=== PATIENT | male | born 1965 | race African-American/Black ===

== ENCOUNTER 2018-04-15 08:08 | Outpatient (CLI) ==
--- NOTE | 2018-04-15 09:31 | US ---
EXAM: Ultrasound abdomen limited. HISTORY: Abdominal pain and bloating. COMPARISON: CT 07/21/2014. TECHNIQUE: Abdominal, real time with image documentation: limited (eg, single organ, quadrant, foll ow-up) FINDINGS: The liver demonstrates increased parenchymal echogenicity with focal sparing near the gall bladder. There is no intrahepatic biliary dilatation. Portal venous flow is normal in direction. T he gallbladder is without shadowing stones, wall thickening or pericholecystic fluid. Common duct me asures approximately 0.5 cm. Visualized portions of the pancreas are unremarkable. IMPRESSION: Fatty infiltration of the liver.
== END 2018-04-15 08:09 ==
LOC: RAD 08:08
PROVIDERS: ATTEND Internal Medicine
DX: R10.9 Unspecified abdominal pain (principal); R14.0 Abdominal distension (gaseous)

== ENCOUNTER 2018-04-23 07:55 | Outpatient (CLI) ==
--- NOTE | 2018-04-23 12:14 | NM ---
Exam: Hepatobiliary scintigraphy with gallbladder ejection fraction Date of exam: 04/23/2018 Radiopharmaceutical: 5.1 mCi Tc-99m mebrofenin i.v. and 8 ounces of Boost HISTORY: Abdominal pain FINDINGS: Following intravenous administration of technetium-99m mebrofenin, sequential abdominal im ages were obtained. There is prompt and uniform accumulation of the radiotracer by the liver. There is normal filling of the intrahepatic ducts, common bile duct, and gallbladder. There is normal exc retion of radiotracer into the duodenum. In order to evaluate the contracted oral response of the gallbladder to a fat containing meal, the ashley mayberry was given 8 ounces of Boost to drink. Sequential imaging was continued after the start of the liquid meal. These images demonstrate good contraction of the gallbladder. The calculated gallbladd er ejection fraction is 22%. In normal subjects, the lower limit of normal gallbladder ejection fraction for Ensure is 33%. Impression: 1. Decreased contractile response of the gallbladder to a fat containing liquid meal although evalua tion is somewhat limited by utilization of Boost instead of Ensure for the fat containing liquid meal . 2. Normal biliary imaging study.
== END 2018-04-23 07:56 | disposition home or self-care (01) ==
LOC: RAD 07:55
PROVIDERS: ATTEND Internal Medicine
DX: R14.0 Abdominal distension (gaseous) (principal); K30 Functional dyspepsia

== ENCOUNTER 2019-02-23 06:55 | Outpatient (CLI) ==
--- NOTE | 2019-02-24 09:57 | ECHO2D ---
Date of Exam: 02/23/19 Ordering Physician: DR. ELLE GUERIN Room #: OP Reason for Echo: SOB, DM2, HYPERTENSION M-Mode Normal Adult Results LV Dimensions Normal Adult Results AoV Opening excursions >1.6 >1.6 LVEDD-base- 3.5-5.8 5.2 Ao root dimensions 2.0-3.7 3.6 LVESD-base- 3.1-4.6 L. Atrium dimensions 1.9-3.8 4.9 Post. Wall thickness 0.8-1.1 1.3 IV septum (thickness) 0.7-1.2 1.4 Post. Wall excursion 0.72-1.3 NORMAL Septal motion 0.8 Systolic motion R. Ventricular cavity 1.5-2.0 NORMAL LVEF 60% 50% Paradoxical septal wall motion NORMAL 2-D : 2-D M Mode Echocardiogram was performed using apical four chamber and left parasternal long and short axis views. Mitral, tricuspid and aortic valves appear to be normal. Contractility of the left ventricle seems to be normal, so is the cavity size. ENLARGED LEFT ATRIAL CAVITY SIZE. Aortic root appears to be normal. There is no pericardial effusion. There is no thrombus noted in the left ventricular or left aortic cavity. No mitral valve prolapse noted. M-MODE: MV: NORMAL AV: NORMAL TV: NORMAL PV: CHAMBER SIZE: ENLARGED LEFT ATRIAL CAVITY WALL MOTION: NORMAL PERICARDIUM: NORMAL INTERPRETATION: 1. LEFT VENTRICULAR HYPERTROPHY (MODERATE) WITH ENLARGED LEFT ATRIAL CAVITY 2. NORMAL LEFT VENTRICULAR CONTRACTILITY 3. NORMAL VALVES MTDD
== END 2019-02-23 06:56 | disposition home or self-care (01) ==
LOC: CAR 06:55
PROVIDERS: ATTEND Internal Medicine
DX: R06.02 Shortness of breath (principal)
CPT/HCPCS: 93005; 93010

== ENCOUNTER 2019-02-24 06:44 | Outpatient (CLI) ==
--- NOTE | 2019-02-24 09:53 | STRESSECHO ---
Date of Test:02/24/19 Ordering Physician: DR. ELLE GUERIN Occupation: TEACHER Reason for Exam: SOB, DM2, HTN Smoking History: NONE Height: 70" Weight: 280 LBS Current Medications: GLIMEPIRIDE, ATORVASTATIN, LEVOTHYROXINE, JANUVIA, METFORMIN, ALLOPURINOL, BYDUREON Resting EKG: SINUS RHYTHM/ NO ACUTE CHANGES Target Heart Rate: 140/165 S-T SEGMENT STAGE MPH/GRADE HEART RATE BPM BLOOD PRESSURE MMHG RHYTHM +/- ELEVATION DEPRESSION SYMPTOMS AT REST 83 BPM 128/72 MMHG SR X NONE 1 1.7/10% 125 BPM 142/72 MMHG SR X NONE 2 2.5/12% 136 BPM 158/70 MMHG SR X NONE 3 3.4/14% 4 4.2/16% 5 5.0/18% Immediately After 143 BPM SR X SHORT OF AIR Minutes Post Exercise 5:00 92 BPM 142/76 MMHG SR X NONE Minutes Post Exercise DURATION OF EXERCISE: 6:21 MAXIMUM HEART RATE REACHED: 143 BPM REASON FOR TERMINATION: SHORT OF AIR 97% OXYGEN SATURATION WITH EXERCISE ON ROOM AIR METS: 8.0 INTERPRETATION: 1. NO EVIDENCE OF ISCHEMIA BY ST-T WAVE CHANGES 2. NO CHEST PAIN OR DISCOMFORT 3. NO ARRHYTHMIAS 4. BLOOD PRESSURE RESPONSE: NORMAL NORMAL LEFT VENTRICULAR CONTRACTILITY--RESTING AND POST EXERCISE MTDD
--- NOTE | 2019-02-28 12:17 | ECHOSTRESS ---
Date of Exam: 02/24/19 Ordering Physician: DR. ELLE GUERIN Reason for Echo: SOB, DM2, HTN, DYSLIPIDEMIA, STRESS TEST --NO ISCHEMIA M-Mode Normal Adult Results LV Dimensions Normal Adult Results AoV Opening excursions >1.6 LVEDD-base- 3.5-5.8 Ao root dimensions 2.0-3.7 LVESD-base- 3.1-4.6 L. Atrium dimensions 1.9-3.8 Post. Wall thickness 0.8-1.1 IV septum (thickness) 0.7-1.2 Post. Wall excursion 0.72-1.3 Septal motion Systolic motion R. Ventricular cavity 1.5-2.0 LVEF 60% Paradoxical septal wall motion 2-D: NORMAL LEFT VENTRICULAR CONTRACTILITY--RESTING AND POST EXERCISE M-MODE: MV: AV: TV: PV: CHAMBER SIZE: WALL MOTION: NORMAL LEFT VENTRICULAR CONTRACTILITY--RESTING AND POST EXERCISE PERICARDIUM: INTERPRETATION: 1. NORMAL LEFT VENTRICULAR CONTRACTILITY--RESTING AND POST EXERCISE MTDD
== END 2019-02-24 06:45 | disposition home or self-care (01) ==
LOC: CAR 06:44
PROVIDERS: ATTEND Internal Medicine
DX: R06.02 Shortness of breath (principal)